=== PATIENT | female | born 1940 | race Caucasian/White ===

== ENCOUNTER 2024-09-26 19:37 | Emergency (ER) | payer MEDICARE ==
[~2024-09-26] VITALS: Ht 165.1 cm; Wt 113.4 kg
--- NOTE | 2024-09-26 19:57 | ERN ---
General Chief Complaint: Constipation Stated Complaint: CONSTIPATION Time Seen by MD: 19:44 Source: patient History of Present Illness Initial Comments An 83-year-old obese female who has a prior history of constipation comes in with the abdominal pain stating that she has not had a bowel movement in two weeks and that when she does force herself to defecate only a few small hard pellets of stool are ever expressed. She has no other symptoms. No nausea no vomiting no diarrhea no upper respiratory tract infections no chest pain no shortness of breath. She has had constipation in the past and this is exactly how it feels. Allergies: Coded Allergies: citric acid (Unverified Allergy, Unknown, 09/26/24) codeine (Unverified Allergy, Unknown, 09/26/24) pineapple (Unverified Allergy, Unknown, 09/26/24) Past Medical History Past Medical History: High Cholesterol, Heart Disease, Hypertension, Hypothyroid, Renal Disese Medical History Other: LUMBAR DISK DISEASE, CONSTIPATION, OSTEOARTHRITIS, VIT D DEFICIENCY Past Surgical History: None ROS Dictation Review of systems is otherwise negative. Physical Exam General Appearance: (+) mild distress Orientation: (+) alert, (+) oriented x 3 Head/Face Trauma: No Eye: bilateral eye normal inspection, bilateral eye PERRL, bilateral eye EOMI Ear, Nose, Throat: (+) hearing grossly normal, (+) normal ENT inspection, (+) moist mucous membraine Neck: (+) normal inspection, (+) supple, (+) full range of motion Respiratory: (+) chest non-tender, (+) lungs clear, (+) well ventilated Heart: (+) regular, (+) no gallop Vascular Comment Plus one bilateral lower extremity swelling that is tender little bit red and mildly pitting Gastrointestinal: (+) soft, (+) non-tender, (+) bowel sound absent Results Laboratory and Microbiology Lab and Micro Result Laboratory Tests Test 09/26/24 20:24 Sodium Level 135 mmol/L (136-145) L Potassium Level 4.1 mmol/L (3.5-5.1) Chloride Level 101 mmol/L (101-111) Carbon Dioxide Level 26 mmol/L (21-32) Blood Urea Nitrogen 29 mg/dL (7-18) H Creatinine 1.2 mg/dL (0.5-1.0) H Glomerular Filtration Rate Calc 45 mL/min (>90) Random Glucose 117 mg/dL (70-105) H Total Calcium 9.0 mg/dL (8.5-10.1) Phosphorus Level 3.1 mg/dL (2.5-4.9) Magnesium Level 2.00 mg/dL (1.80-2.40) MDM I will start the patient's workup with a simple KUB. Patient's KUB does show a large stool burden mostly restricted to the transverse colon and descending colon. She does have an extremely large impaction on her rectal canal. I have written for a Fleet's enema as well as magnesium citrate. The patient has received these medications she would like to go back to her residents and wait for the medications to work instead of staying here in the emergency room I warned her that the downside of this would be that she would come back in a day because she can not evacuate her bowels. The positive side is if she stayed we would have knowledge that she evacuated her bowels or we would know we need to to try further medications. Patient is still desired to go back to her residence. I have discharge the patient from the ED ED Course Orders Procedure Category Date Status Time Abd 1vw RAD 09/26/24 Resulted 19:44 Basic Metabolic Panel LAB 09/26/24 Complete 20:00 Magnesium LAB 09/26/24 Complete 20:00 Phosphorus LAB 09/26/24 Complete 20:00 Lactated Ringers PHA 09/26/24 Complete 1000ml (Lactated 20:20 Magnesium Citrate PHA 09/26/24 Complete (Magnesium Citrate) 21:00 Fleet Order CPOE 09/26/24 Transmitted 20:48 Current Medications Medications (Trade) Dose Ordered Sig/Harris Route PRN Reason Start Time Stop Time Status Last Admin Dose Admin Lactated Ringer's (Lactated Ringers 1000ml) 1,000 ml BOLUS STAT IV 09/26/24 20:20 09/26/24 20:24 DC 09/26/24 21:07 Magnesium Citrate (Magnesium Citrate) 296 ml ONCE ONCE PO 09/26/24 21:00 09/26/24 21:01 DC 09/26/24 23:23 Vital Signs Date Time Temp Pulse Resp B/P (MAP) Pulse Ox O2 Delivery O2 Flow Rate FiO2 09/26/24 19:58 98.4 79 18 180/86 94 Room Air* 0 21 09/26/24 19:38 99.1 80 16 147/82 97 Room Air 0 DX & DISP Disposition: Discharge Departure Impression: Primary Impression: Constipation Condition: Stable Additional Instructions: Please return if you are unable to evacuate her bowels after the interventions that we provided for you today I recommended daily dose of GoLYTELY to help prevent constipation in the future. SOMMER HEARD MD Sep 26, 2024 19:57
[2024-09-26 20:43] LABS: CREATININE 1.2 mg/dL (0.5-1.0); POTASSIUM 4.1 mmol/L (3.5-5.1)
[2024-09-26 20:46] LABS: PHOSPHORUS 3.1 mg/dL (2.5-4.9)
[2024-09-26] MEDS: LACTATED RINGERS 1000ML IV STA (21:07)
--- NOTE | 2024-09-26 21:11 | HMCIMG ---
Exam Type: ABD 1VW Clinical Information: constipation Comparison: None Findings: Abdomen demonstrates no evidence of pathologic calcification or soft tissue mass. There are no radiopacities to suggest calculous disease. There is abundant fecal matter consistent with constipation. There is no evidence of dilatation to suggest obstruction or adynamic ileus. The bony structures are unremarkable. IMPRESSION: Constipation.
[2024-09-26] MEDS: MAGNESIUM CITRATE 296 ML SOLUTION PO ONE (23:23)
--- NOTE | 2024-09-27 01:13 | NUR ---
[facility] CALLED AT THIS TIME
--- NOTE | 2024-09-27 01:20 | NUR ---
ATTEMPTED TO CALL [facility], NO ANSWER AT THIS TIME
[2024-09-27 01:40] VITALS: BP 156/88; PULSE 80; RESP 20; TEMP 98.6; O2SAT 96
--- NOTE | 2024-09-27 01:41 | NUR ---
PATIENT LEAVING VIA EMS AT THIS TIME
--- NOTE | 2024-09-27 01:44 | NUR ---
ATTEMPTED TO CALL [facility], NO ANSWER AT THIS TIME
== END 2024-09-27 01:41 ==
LOC: EDH 19:37
DX: K59.00 Constipation, unspecified (principal); E66.9 Obesity, unspecified; E03.9 Hypothyroidism, unspecified; E78.00 Pure hypercholesterolemia, unspecified; I10 Essential (primary) hypertension; M19.90 Unspecified osteoarthritis, unspecified site; Z88.5 Allergy status to narcotic agent; Z68.41 Body mass index [BMI] 40.0-44.9, adult
CPT/HCPCS: 99284; 96360; 96361; 83735; 84100; 80048; 36415; 74018; J7120

== ENCOUNTER → 2025-03-04 | Outpatient (CLI) | payer MEDICARE ==
--- NOTE | 2025-03-06 09:38 | HMCIMG ---
CLINICAL INDICATION: Asymptomatic menopausal state COMPARISON: None for comparison TECHNIQUE: Bone densitometry is performed of the lumbar spine and left hip. FINDINGS: Total BMD of lumbar spine is 0.769 g/cm2 with a T-score of -2.5 and Z-score is 0.3. Total BMD of left hip is 0.750 g/cm2 with a T-score of -1.6 and Z-score is 0.8. FRAX SCORE: The 10 year fracture risk for a major osteoporotic fracture and hip fracture not reported due to T score at or below -2.5 IMPRESSION: 1. Osteoporosis and lumbar spine and left hip 2. Recommend follow-up in 13 months World Health Organization criteria for BMD interpretation classify patients as Normal (T-score at or above -1.0), Osteopenic (T-score between -1.0 and -2.5), or Osteoporotic (T-score at or below -2.5). FRAX SCORE: A. All treatment decisions require clinical judgment and consideration of individual patient factors, including patient preferences, comorbidities, previous drug use, risk factors not captured in the FRAX model (e.g., frailty, falls, vitamin D deficiency, increased bone turnover, interval significant decline in bone density) and possible [id number]-estimation of fracture risk by FRAX. B. In addition, the NOF Guide recommends that FDA-approved medical therapies be considered in postmenopausal women and men age greater than or equal to 50 years with a: i. Hip or vertebral (clinical or morphometric) fracture. ii. T-score of less than or equal to -2.5 at the spine or hip. iii. Ten-year fracture probability by FRAX of greater than or equal to 3% for hip fracture of greater than or equal to 20% for major osteoporotic fracture.
== END | disposition home or self-care (01) ==
LOC: RAH 09:29
PROVIDERS: ATTEND Internal Medicine
DX: M81.0 Age-related osteoporosis without current pathological fracture (principal); Z78.0 Asymptomatic menopausal state
CPT/HCPCS: 77080